=== PATIENT | male | born 1960 | race Caucasian/White ===

== ENCOUNTER → 2017-10-03 | Outpatient (CLI) | payer BC ==
[~2017-10-03] MED LIST: BENA40TA2 PO; LEVO200T PO; OMNIPAQUE 350 MG/ML, 150 ML BOTTLE ONE; SIMV40TA3 PO
== END ==
LOC: RAD 12:49
PROVIDERS: ATTEND Nurse Practitioner Family
DX: D71 Functional disorders of polymorphonuclear neutrophils (principal); I89.0 Lymphedema, not elsewhere classified; M79.602 Pain in left arm
CPT/HCPCS: 71260; Q9967